=== PATIENT | female | born 1960 | race Caucasian/White ===

== ENCOUNTER → 2016-07-19 07:48 | Outpatient (CLI) | payer MEDICAID ==
[2011-04-07 08:11] VITALS: BMI 27.1
== END | disposition home or self-care (01) ==
LOC: D.MRI 07:48
DX: R10.9 Unspecified abdominal pain (principal)

== ENCOUNTER → 2016-07-26 07:55 | Outpatient (CLI) | payer MEDICAID ==
[2011-04-07 08:11] VITALS: BMI 27.1
== END | disposition home or self-care (01) ==
LOC: D.RAD 07:55
DX: R10.9 Unspecified abdominal pain (principal)

== ENCOUNTER → 2016-12-14 16:45 | Outpatient (CLI) | payer MEDICAID ==
[2011-04-07 08:11] VITALS: BMI 27.1
== END | disposition home or self-care (01) ==
LOC: D.MAMMO 08:15
DX: Z12.31 Encounter for screening mammogram for malignant neoplasm of breast (principal)

== ENCOUNTER → 2017-01-13 16:45 | Outpatient (CLI) | payer MEDICAID ==
[2011-04-07 08:11] VITALS: BMI 27.1
== END | disposition home or self-care (01) ==
LOC: D.MAMMO 09:30
DX: R92.8 Other abnormal and inconclusive findings on diagnostic imaging of breast (principal)

== ENCOUNTER 2019-01-15 08:00 | Outpatient (CLI) | payer MEDICAID ==
[2011-04-07 08:11] VITALS: BMI 27.1
== END 2019-01-15 23:59 | disposition home or self-care (01) ==
LOC: D.MAMMO 08:00
PROVIDERS: ATTEND Obstetrics & Gynecology
DX: Z12.31 Encounter for screening mammogram for malignant neoplasm of breast (principal)